=== PATIENT | male | born 1980 | race African-American/Black ===

== ENCOUNTER 2016-12-23 17:07 | Inpatient (IN) | payer MEDICAID, OTHER ==
[~2016-12-23] VITALS: Ht 175.3 cm; Wt 90.7 kg
[~2016-12-23 17:07] MED LIST: BENZ1TAB70 PO; HALO10TA15 PO; LISI-661 PO; LURA80 PO; METF500T4 PO; OMEP20 PO
[2016-12-23 18:24] LABS: BASOPHILS # (AUTO) 0.05 K/uL (0.00-0.20); BASOPHILS % (AUTO) 0.4 % (0.0-2.0); EOSINOPHILS # (AUTO) 0.04 K/uL (0.00-0.70); EOSINOPHILS % (AUTO) 0.36 % (1.0-6.0); HEMATOCRIT 41.6 % (41-53); HEMOGLOBIN 13.8 g/dL (13.5-17.5); LYMPHOCYTES # (AUTO) 1.5 K/uL (1.0-4.8); LYMPHOCYTES % (AUTO) 12.2 % (22.0-44.0); MEAN CORPUSCULAR HEMOGLOBIN 28.1 pg (26.0-34.0); MEAN CORPUSCULAR HGB CONC 33.2 G/dL (31.0-37.0); MEAN CORPUSCULAR VOLUME 85 fL (80-100); MONOCYTES # (AUTO) 0.5 K/uL (0.1-1.0); MONOCYTES % (AUTO) 4.4 % (2.0-9.0); NEUTROPHILS # (AUTO) 9.9 K/uL (1.8-7.7); NEUTROPHILS % (AUTO) 82.6 % (40.0-70.0); PLATELET COUNT (AUTO) 297 K/uL (150-450); RED BLOOD CELL COUNT(AUTO) 4.91 MIL/uL (4.50-5.90); RED CELL DISTRIBUTION WIDTH 13.6 % (11.5-14.5)
[2016-12-23 18:25] LABS: ANION GAP 11 mmol/L (8-16); CALCIUM, TOTAL 8.7 mg/dL (8.8-10.5); CARBON DIOXIDE 24 mmol/L (22-29); CHLORIDE 102 mmol/L (98-107); CREATININE 0.98 mg/dL (0.60-1.30); GLOMERULAR FILTR. RATE CALC > 60 mL/min (>60); POTASSIUM 3.8 mmol/L (3.5-5.1); SODIUM SERUM 137 mmol/L (136-145); UREA NITROGEN, BLOOD 22 mg/dL (7-18)
[2016-12-23] MEDS ORDERED: HALOPERIDOL LACTATE 5 MG/ML VIAL IM ONE (18:30)
[2016-12-23] MEDS ORDERED: DiphenhydrAMINE HCL 50 MG/ML VIAL IM ONE (18:30)
[2016-12-23] MEDS ORDERED: LORazepam 2 MG/ML VIAL IM ONE (18:30)
[2016-12-23 18:31] LABS: ALANINE AMINOTRANSFERASE 19 U/L (12-78); ALBUMIN 3.7 g/dL (3.4-5.0); ASPARTATE AMINOTRANSFERASE 8 U/L (15-37); BILIRUBIN,TOTAL 0.3 mg/dL (0.1-1.0)
[2016-12-23] MEDS ORDERED: ZOLPIDEM TARTRATE 10 MG TABLET PO PRN (18:45)
[2016-12-23] MEDS ORDERED: MetFORMIN HCL 500 MG TABLET PO ONE (19:00)
[2016-12-23] MEDS ORDERED: SODIUM CHLORIDE 0.9% 1,000 ML IV ONE (19:15)
[2016-12-23 20:37] LABS: GLUCOSE,POINT OF CARE 196 MG/DL (70-110)
[2016-12-23] MEDS ORDERED: PNEUMOCOCCAL VACCINE POLYVALENT 0.5 ML VIAL [PPSV23] IM ONE (21:45)
[2016-12-23 21:48] VITALS: BP 135/76
[2016-12-23] MEDS ORDERED: GLUCAGON,HUMAN RECOMBINANT 1 MG VIAL IM PRN (22:00)
[2016-12-23 22:06] LABS: GLUCOSE,POINT OF CARE 170 MG/DL (70-110)
[2016-12-24 05:42] LABS: GLUCOSE,POINT OF CARE 257 MG/DL (70-110)
[2016-12-24] MEDS: MetFORMIN HCL 500 MG TABLET PO SCH ×2 (06:15→16:58)
[2016-12-24] MEDS: OMEPRAZOLE 20 MG CAPSULE PO SCH (06:15)
[2016-12-24 06:30] VITALS: BP 131/90
[2016-12-24] MEDS: INSULIN ASPART 100 UNITS/ML SQ PRN ×2 (06:30→16:59)
[2016-12-24 08:06] VITALS: BP 136/88
[2016-12-24 08:07] LABS: CHOL/HDL RATIO 5.6 (4.2-7.3)
[2016-12-24] MEDS ORDERED: IBUPROFEN 600 MG TABLET PO PRN (09:00)
[2016-12-24] MEDS ORDERED: MAG HYDROX/AL HYDROX/SIMETH ES 30 ML SUSPENSION UDCUP PO PRN (09:00)
[2016-12-24] MEDS ORDERED: BACITRACIN 28.4 GM OINTMENT TP PRN (09:00)
[2016-12-24] MEDS ORDERED: ACETAMINOPHEN 325 MG TABLET PO PRN (09:00)
[2016-12-24] MEDS ORDERED: MAGNESIUM HYDROXIDE SUSPENSION 30 ML UDCUP PO PRN (09:00)
[2016-12-24] MEDS ORDERED: ALBUTEROL SULFATE HFA 90 MCG/PUFF 8 GM INHALER IH PRN (09:00)
[2016-12-24] MEDS ORDERED: PETROLATUM,WHITE 71 GM JELLY TP PRN (09:00)
[2016-12-24] MEDS ORDERED: CloNIDine HCL 0.1 MG TABLET PO PRN (09:00)
[2016-12-24] MEDS ORDERED: ONDANSETRON HCL 4 MG TABLET PO PRN (09:00)
[2016-12-24] MEDS ORDERED: LOPERAMIDE HCL 2 MG CAPSULE PO PRN (09:00)
[2016-12-24] MEDS: LISINOPRIL 10 MG TABLET PO SCH (09:55)
[2016-12-24] MEDS: LORazepam 2 MG TABLET PO PRN ×2 (09:56→16:58)
[2016-12-24] MEDS: HALOPERIDOL 5 MG TABLET PO PRN ×2 (09:56→16:58)
[2016-12-24 11:47] LABS: GLUCOSE,POINT OF CARE 166 MG/DL (70-110)
[2016-12-24 16:06] VITALS: BP 127/78
[2016-12-24 17:38] LABS: GLUCOSE,POINT OF CARE 196 MG/DL (70-110)
[2016-12-24] MEDS: BENZOCAINE/MENTHOL LOZENGE MM PRN (21:14)
[2016-12-25 05:57] LABS: GLUCOSE,POINT OF CARE 160 MG/DL (70-110)
[2016-12-25] MEDS: OMEPRAZOLE 20 MG CAPSULE PO SCH (06:12)
[2016-12-25] MEDS: MetFORMIN HCL 500 MG TABLET PO SCH ×2 (06:14→16:30)
[2016-12-25] MEDS: INSULIN ASPART 100 UNITS/ML SQ PRN ×2 (06:16→16:31)
[2016-12-25 08:31] VITALS: BP 130/74
[2016-12-25] MEDS: LISINOPRIL 10 MG TABLET PO SCH (09:18)
[2016-12-25] MEDS: BENZTROPINE MESYLATE 1 MG TABLET PO SCH ×2 (09:18→16:30)
[2016-12-25] MEDS: LORazepam 2 MG TABLET PO PRN ×2 (09:18→16:30)
[2016-12-25] MEDS: HALOPERIDOL 10 MG TABLET PO SCH ×2 (09:19→16:30)
[2016-12-25 16:00] VITALS: BP 129/71
[2016-12-25 16:37] LABS: GLUCOSE,POINT OF CARE 165 MG/DL (70-110)
[2016-12-26 01:06] VITALS: BP 134/75
[2016-12-26] MEDS: HALOPERIDOL 5 MG TABLET PO PRN (01:09)
[2016-12-26] MEDS: LORazepam 2 MG TABLET PO PRN ×2 (01:09→09:11)
[2016-12-26 06:02] LABS: GLUCOSE,POINT OF CARE 129 MG/DL (70-110)
[2016-12-26] MEDS: OMEPRAZOLE 20 MG CAPSULE PO SCH (06:04)
[2016-12-26] MEDS: MetFORMIN HCL 500 MG TABLET PO SCH ×2 (06:04→16:03)
[2016-12-26 08:23] VITALS: BP 118/71
[2016-12-26] MEDS: BENZTROPINE MESYLATE 1 MG TABLET PO SCH ×2 (09:11→16:03)
[2016-12-26] MEDS: LISINOPRIL 10 MG TABLET PO SCH (09:11)
[2016-12-26] MEDS: HALOPERIDOL 10 MG TABLET PO SCH ×2 (09:11→16:03)
[2016-12-26 16:06] VITALS: BP 118/72
[2016-12-26 16:07] LABS: GLUCOSE COMMENT 1 Received Meds; GLUCOSE,POINT OF CARE 187 MG/DL (70-110)
[2016-12-26] MEDS: INSULIN ASPART 100 UNITS/ML SQ PRN (16:14)
[2016-12-27 00:48] VITALS: BP 138/84
[2016-12-27 05:47] LABS: GLUCOSE,POINT OF CARE 137 MG/DL (70-110)
[2016-12-27] MEDS: MetFORMIN HCL 500 MG TABLET PO SCH ×2 (06:14→16:26)
[2016-12-27] MEDS: OMEPRAZOLE 20 MG CAPSULE PO SCH (06:14)
[2016-12-27 08:27] VITALS: BP 124/63
[2016-12-27] MEDS: BENZTROPINE MESYLATE 1 MG TABLET PO SCH ×2 (08:35→16:26)
[2016-12-27] MEDS: LORazepam 2 MG TABLET PO PRN ×2 (08:35→16:26)
[2016-12-27] MEDS: HALOPERIDOL 10 MG TABLET PO SCH ×2 (08:35→16:26)
[2016-12-27] MEDS: LISINOPRIL 10 MG TABLET PO SCH (08:36)
[2016-12-27 16:12] VITALS: BP 120/73
[2016-12-27] MEDS: INSULIN ASPART 100 UNITS/ML SQ PRN (16:27)
[2016-12-27 17:13] LABS: GLUCOSE COMMENT 1 Received Meds; GLUCOSE,POINT OF CARE 204 MG/DL (70-110)
[2016-12-28 02:58] VITALS: BP 121/77
[2016-12-28] MEDS: BENZOCAINE/MENTHOL LOZENGE MM PRN (03:58)
[2016-12-28 05:42] LABS: GLUCOSE,POINT OF CARE 130 MG/DL (70-110)
[2016-12-28] MEDS: OMEPRAZOLE 20 MG CAPSULE PO SCH (06:22)
[2016-12-28] MEDS: MetFORMIN HCL 500 MG TABLET PO SCH ×2 (06:23→16:43)
[2016-12-28 08:06] VITALS: BP 134/85
[2016-12-28] MEDS: LISINOPRIL 10 MG TABLET PO SCH (08:38)
[2016-12-28] MEDS: HALOPERIDOL 10 MG TABLET PO SCH ×2 (08:38→16:44)
[2016-12-28] MEDS: BENZTROPINE MESYLATE 1 MG TABLET PO SCH ×2 (08:38→16:43)
[2016-12-28 16:00] VITALS: BP 118/72
[2016-12-28] MEDS: LORazepam 2 MG TABLET PO PRN (16:44)
[2016-12-28] MEDS: INSULIN ASPART 100 UNITS/ML SQ PRN (16:45)
[2016-12-28 17:08] LABS: GLUCOSE COMMENT 1 Received Meds; GLUCOSE,POINT OF CARE 157 MG/DL (70-110)
[2016-12-29 06:00] VITALS: BP 127/80
[2016-12-29] MEDS: OMEPRAZOLE 20 MG CAPSULE PO SCH (06:24)
[2016-12-29] MEDS: MetFORMIN HCL 500 MG TABLET PO SCH (06:24)
[2016-12-29 06:33] LABS: GLUCOSE,POINT OF CARE 185 MG/DL (70-110)
[2016-12-29] MEDS: INSULIN ASPART 100 UNITS/ML SQ PRN (06:37)
[2016-12-29 08:06] VITALS: BP 134/72
[2016-12-29] MEDS: HALOPERIDOL 10 MG TABLET PO SCH (09:10)
[2016-12-29] MEDS: LISINOPRIL 10 MG TABLET PO SCH (09:10)
[2016-12-29] MEDS: BENZTROPINE MESYLATE 1 MG TABLET PO SCH (09:10)
== END 2016-12-29 13:30 | disposition home or self-care (01) | DRG 750 ==
LOC: EMS 17:08 → B3A 19:08
PROVIDERS: ADMIT Psychiatry & Neurology Psychiatry; ATTEND Psychiatry & Neurology Psychiatry
DX: F20.0 Paranoid schizophrenia (principal); E11.65 Type 2 diabetes mellitus with hyperglycemia; I10 Essential (primary) hypertension; J44.9 Chronic obstructive pulmonary disease, unspecified; K21.9 Gastro-esophageal reflux disease without esophagitis; Z72.0 Tobacco use; G47.00 Insomnia, unspecified; K59.00 Constipation, unspecified; Z23 Encounter for immunization
CPT/HCPCS: 82962; 90471; 96372; 99285; G0480; J1200; J1630; J2060; J7030; Q0162

== ENCOUNTER 2017-02-08 09:37 | Emergency (ER) | payer MEDICAID ==
[~2017-02-08] VITALS: Ht 182.9 cm; Wt 113.6 kg
[~2017-02-08 09:37] MED LIST changes: -LURA80 PO
[2017-02-08 09:39] VITALS: BP 173/118
== END 2017-02-08 09:53 | disposition left against medical advice (07) ==
LOC: EMS 09:39
DX: Z00.8 Encounter for other general examination (principal); Z53.21 Procedure and treatment not carried out due to patient leaving prior to being seen by health care provider